=== PATIENT | male | born 1980 | race Caucasian/White ===

== ENCOUNTER 2016-07-02 08:39 | Emergency (ER) | payer OTHER ==
[~2016-07-02] VITALS: Ht 175.3 cm; Wt 90.7 kg
[2016-07-02 08:45] VITALS: BP 152/84
[2016-07-02] MEDS ORDERED: HYDROCODONE/APAP 5/325MG 1 EACH TABLET ONE (08:58)
[2016-07-02] MEDS ORDERED: CARISOPRODOL 350 MG TABLET ONE (08:59)
[2016-07-02] MEDS ORDERED: CARISOPRODOL 350 MG TABLET PO ONE (09:00)
[2016-07-02] MEDS ORDERED: HYDROCODONE/APAP 5/325MG 1 EACH TABLET PO ONE (09:00)
== END 2016-07-02 09:06 | disposition home or self-care (01) ==
LOC: ER 08:41
DX: M54.41 Lumbago with sciatica, right side (principal); K21.9 Gastro-esophageal reflux disease without esophagitis
CPT/HCPCS: 99283; A4606; Z7610

== ENCOUNTER 2016-08-23 20:41 | Emergency (ER) | payer OTHER ==
[~2016-08-23] VITALS: Ht 175.3 cm; Wt 90.7 kg
[2016-08-23 21:41] VITALS: BP 130/85
== END 2016-08-23 22:51 | disposition left against medical advice (07) ==
LOC: ER 20:42
DX: Z53.21 Procedure and treatment not carried out due to patient leaving prior to being seen by health care provider (principal)
CPT/HCPCS: A4606; Z7610

== ENCOUNTER 2018-11-11 14:37 | Emergency (ER) | payer OTHER ==
[~2018-11-11] VITALS: Ht 172.7 cm; Wt 90.7 kg
--- NOTE | 2018-11-11 14:45 | NUR ---
PT BIB SELF C/O DIFFICULTY SWALLOWING S/P EATING STEAK AT NOON TIME. "STUCK SENSATION" PT IS AAOX4, NOT IN RESPIRATORY DISTRESS, V/S STABLE, KEPT RESTED AND COMFORTABLE, WILL CONTINUE TO MONITOR.
--- NOTE | 2018-11-11 15:10 | NUR ---
SEEN AND EXAMINED BY MALORIE MITCHELL
[2018-11-11] MEDS ORDERED: GLUCAGON,HUMAN RECOMBINANT 1 MG/VIAL VIAL ONE (15:20)
[2018-11-11] MEDS ORDERED: MAG HYDROX/AL HYDROX/SIMETH 30 ML UDC ONE (15:20)
[2018-11-11] MEDS ORDERED: LIDOCAINE VISCOUS 2% UD 15 ML UDC ONE (15:20)
[2018-11-11] MEDS ORDERED: FAMOTIDINE/PF INJ 20 MG/2 ML VIAL IV ONE ×2 (15:21→15:30)
[2018-11-11] MEDS ORDERED: LIDOCAINE VISCOUS 2% UD 15 ML UDC MM ONE (15:30)
[2018-11-11] MEDS ORDERED: MAG HYDROX/AL HYDROX/SIMETH 30 ML UDC PO ONE (15:30)
[2018-11-11] MEDS ORDERED: GLUCAGON,HUMAN RECOMBINANT 1 MG/VIAL VIAL IV ONE (15:30)
--- NOTE | 2018-11-11 15:30 | NUR ---
IV LINE ESTABLISHED.
--- NOTE | 2018-11-11 16:43 | NUR ---
IV removed. Catheter intact and site benign. Pressure and 4x4 applied to site. No bleeding noted. Patient discharged to home in stable condition. Written and verbal after care instructions given. Patient verbalizes understanding of instruction.
[2018-11-11 16:45] VITALS: BP 128/85
== END 2018-11-11 16:47 | disposition home or self-care (01) ==
LOC: ER 14:41
DX: R09.89 Other specified symptoms and signs involving the circulatory and respiratory systems (principal); K21.9 Gastro-esophageal reflux disease without esophagitis
CPT/HCPCS: 70360; 96374; 96375; 99283; J1610; J3490

== ENCOUNTER 2019-05-20 11:07 | Emergency (ER) | payer OTHER ==
[~2019-05-20] VITALS: Ht 172.7 cm; Wt 95.3 kg
--- NOTE | 2019-05-20 12:20 | NUR ---
came in for neck pain x 2 weeks, worse this morning 7-8/10 pain level, to ER bed 12, hooked to monitor, changed to hosp gown, warm blanket provided. awaiting md perez
--- NOTE | 2019-05-20 12:24 | NUR ---
[employer] Degrasse at bedside
[2019-05-20] MEDS ORDERED: METOCLOPRAMIDE HCL 10 MG/2 ML VIAL IV ONE (12:30)
[2019-05-20] MEDS ORDERED: diphenhydrAMINE HCL 50 MG/ML VIAL IV ONE (12:30)
[2019-05-20] MEDS ORDERED: IV NS 0.9% 250 ML BAG IV ONE (12:30)
[2019-05-20] MEDS ORDERED: METOCLOPRAMIDE HCL 10 MG/2 ML VIAL ONE ×2 (12:57→13:02)
[2019-05-20] MEDS ORDERED: diphenhydrAMINE HCL 50 MG/ML VIAL ONE (12:57)
--- NOTE | 2019-05-20 14:00 | NUR ---
IV removed. Catheter intact and site benign. Pressure and 4x4 applied to site. No bleeding noted.Patient discharged to home in stable condition. Written and verbal after care instructions given. Patient verbalizes understanding of instruction. Patient verbalized he is going to take LYFT.
[2019-05-20 14:02] VITALS: BP 132/89
== END 2019-05-20 14:00 | disposition home or self-care (01) ==
LOC: ER 11:07
DX: S16.1XXA Strain of muscle, fascia and tendon at neck level, initial encounter (principal); K21.9 Gastro-esophageal reflux disease without esophagitis; Z87.891 Personal history of nicotine dependence; X58.XXXA Exposure to other specified factors, initial encounter; Y93.89 Activity, other specified; Y92.89 Other specified places as the place of occurrence of the external cause; Y99.8 Other external cause status
CPT/HCPCS: 96374; 96375; 99283; A4216; J1200; J2765 ×2; J7050

== ENCOUNTER 2022-03-13 10:30 | Emergency (ER) | payer OTHER ==
[~2022-03-13] VITALS: Ht 170.2 cm; Wt 68.0 kg
--- NOTE | 2022-03-13 10:40 | NUR ---
[id number], in custody. LLE laceration approx 5 inches s/p kicking a window patient refuse to answer. vital sign taken. agitated
[2022-03-13] MEDS ORDERED: TDAP [DIPH/PERTUSSIS/TET] 0.5 ML VIAL IM ONE ×2 (11:14→11:30)
[2022-03-13] MEDS ORDERED: HYDROCODONE/APAP 5/325MG TABLET ONE (11:14)
[2022-03-13] MEDS ORDERED: HYDROCODONE/APAP 5/325MG TABLET PO ONE (11:30)
[2022-03-13] MEDS ORDERED: BACI/NEOM/POLY B OINT PKT 1 UDPKT PACKET TP ONE (11:30)
[2022-03-13] MEDS ORDERED: LIDOCAINE 1%-EPI 1:100,000 20 ML VIAL TP ONE (11:30)
[2022-03-13] MEDS ORDERED: LIDOCAINE 1%-EPI 1:100,000 20 ML VIAL ONE (11:33)
--- NOTE | 2022-03-13 11:36 | NUR ---
lac tray at bedside ready , waiting for md
[2022-03-13] MEDS ORDERED: LORAZEPAM INJ 2 MG/ML VIAL ONE (15:08)
[2022-03-13] MEDS ORDERED: LORAZEPAM INJ 2 MG/ML VIAL IM ONE (15:30)
--- NOTE | 2022-03-13 16:30 | NUR ---
wound dressing applied by emt aseptically
--- NOTE | 2022-03-13 16:59 | NUR ---
patient discharged with lapd in stable condition. Written and verbal after care instructions given. Patient verbalizes understanding of instruction.
[2022-03-13 17:00] VITALS: BP 115/61
== END 2022-03-13 17:01 ==
LOC: ER 10:35
DX: S81.811A Laceration without foreign body, right lower leg, initial encounter (principal); S71.111A Laceration without foreign body, right thigh, initial encounter; K21.9 Gastro-esophageal reflux disease without esophagitis; W20.8XXA Other cause of strike by thrown, projected or falling object, initial encounter; Y93.89 Activity, other specified; Y92.89 Other specified places as the place of occurrence of the external cause; Y99.8 Other external cause status
CPT/HCPCS: 99284; 12006; 73610; 73560; 73590; 96372; J2060; A6403; J3490; 90715